=== PATIENT | male | born 1990 | race Caucasian/White ===

== ENCOUNTER 2019-02-06 09:48 | Day surgery (SDC) | payer OTHER ==
[~2019-02-06 09:48] MED LIST: Buffered Lidocaine 1% SYRIN* 1 ML/SYRINGE INTRADERM ONE; Dexamethasone IV* 4 MG/ML 1 ML (4 MG) IV SLOW PU ONE; DiMENhydriNATE IV* 50 MG/ML VIAL IV PUSH PRN; Famotidine IV* 10 MG/ML 2 ML (20 mg) IV ONE; HYDROcodone/ACETAMIN 5-325 MG* 1 TAB PO PRN; Lactated Ringers 1000 ML Bag* 1,000 ML IV SCH; Naloxone* 0.4 MG/ML 1 ML VIAL IV PRN; fentaNYL* 50 MCG/ML 2 ML VIAL (100 MCG VIAL) IV PRN; oxyCODONE/Acetamin 5/325 MG* TAB PO PRN
[2019-02-06] MEDS ORDERED: Bupivacaine 0.25% SDV* 30 ML ONE (09:52)
[2019-02-06] MEDS ORDERED: ceFAZolin 2 GM in NS PREMIX(*) 2 GM/100 ML BAG IVPB ONE (09:57)
[2019-02-06] MEDS ORDERED: Dexamethasone IV* 4 MG/ML 1 ML (4 MG) ONE (09:57)
[2019-02-06] MEDS ORDERED: Famotidine IV* 10 MG/ML 2 ML (20 mg) ONE (09:57)
[2019-02-06] MEDS ORDERED: Propofol* 10 MG/ML 20 ML BTL ONE (10:13)
[2019-02-06] MEDS ORDERED: Midazolam* 1 MG/ML 5 ML VIAL (5 MG) ONE (10:13)
[2019-02-06] MEDS ORDERED: Lidocaine 2% PF * 5 ML VIAL ONE (10:13)
[2019-02-06] MEDS ORDERED: fentaNYL* 50 MCG/ML 2 ML VIAL (100 MCG VIAL) ONE ×2 (10:13→12:18)
[2019-02-06] MEDS ORDERED: Ketorolac INJ* 30 MG/ML 1 ML VIAL ONE (10:29)
[2019-02-06] MEDS ORDERED: Bupivacaine 0.25% EPI 200,000* 30 ML SDV ONE (11:33)
[2019-02-06] MEDS ORDERED: Ondansetron INJ* 2 MG/ML VIAL ONE (12:00)
[2019-02-06 14:11] VITALS: BP 126/76
--- NOTE | 2019-02-06 15:44 | OP ---
DATE OF OPERATION: 02/06/19 - [facility] DATE OF : 89 SURGEON: Edwin Matos MD. DIRECTOR OF RESTAURANT: MAYRA Flores. ANESTHESIOLOGIST: Dr. Damon. ANESTHESIA: General. 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 OPERATIVE PROCEDURES: 1. Left wrist scaphoid nonunion repair with iliac crest cortical cancellous bone graft. 2. Left wrist radial styloidectomy. INDICATIONS: Jerzy is 29. He has an early stage SNAC wrist. He has a lot of lunate extension on the x-rays. It is causing him pain. I got a CT scan to evaluate the extent of deformity. We talked about treatment options. I told him about different bone grafting options and that I would likely end up selecting a piece of iliac crest bone graft. He understands this. He understands there is a chance that he could have pain related to harvesting of the bone graft. He wants to proceed. ESTIMATED BLOOD LOSS: 20 mL. COMPLICATIONS: None. FINDINGS: See above and below. DESCRIPTION OF PROCEDURE: Jerzy was seen in the preoperative holding area. The correct site, side, and procedures were identified. We came back to the operating room, where the arm was prepped and draped in the usual fashion and a time-out was performed. The arm was exsanguinated with the Esmarch and the tourniquet was inflated to 225 mmHg. I made an oblique incision in line with the scaphoid. This was brought back proximally along the course of the FCR tendon. Tendon dissection was carried down. The FCR tendon sheath was released. The tendon was retracted ulnarly. The subsheath was released. I then incised the capsule of the scaphotrapezial joint. The soft tissue was dissected down in line with the scaphoid. The radioscaphocapitate ligament was incised. This exposed the anterior aspect of the scaphoid. The nonunion site was visualized. It took quite some time, but I was able to fully debride it with a combination of the [place] blade, the rongeur, and the curets. Once I had all the fibrous tissue excised, I hyperextended the wrist to correct the deformity. Once I had a good size of the amount of bone loss, I went ahead and turned my attention to harvesting the graft. I made a 4 to 5 cm incision over the junction of the anterior and middle one- thirds of the iliac crest. Dissection was carried down to the fascia. The fascia was incised over the iliac crest. Baby Hohmann retractors were placed. The soft tissue was released around the crest. I then harvested a piece of bicortical cortical cancellous iliac crest bone graft. This was a 1 cm block. This was done using the sagittal saw as well as the curved osteotomes. The inner table was left intact. Once I had harvested a nice piece of cortical cancellous graft, I harvested some additional cancellous graft. I then irrigated out the wound and packed the wound in case I needed to come back to get more bone graft later. I then packed some of the cancellous graft around the cancellous edges of my nonunion. I then went ahead and contoured my cortical cancellous graft to the appropriate size and then tapped into place, getting an extremely tight and excellent fit. The anterior portion was held out to length nicely by the cortical strut. At this point, things were very stable. I went ahead and removed a portion of the trapezium, the anterior lip. I then placed a guidewire for the mini Mitek screw in the standard location. It was maybe just a smidge posterior from the perfect center on the lateral view, but certainly very close and not enough that I wanted to risk losing any fixation. I then measured and selected the 24 mm mini Acutrak screw. I drilled and then placed the screw in standard fashion. I got excellent compression and excellent stability. Fluoroscopic imaging confirmed good location of the screw. The wound was then irrigated out. The radioscaphocapitate ligament was repaired with 3-0 Ethibond suture. The anterior capsule and soft tissue were closed over the scaphoid to the extent possible. The skin was then closed with 3-0 nylon suture. The iliac crest wound was irrigated out. Bone wax was placed over all the cancellous bone. The fascia was closed with 0 Vicryl suture. The subcutaneous tissue was reapproximated with 2-0 Vicryl suture. The skin was closed with 3-0 Monocryl suture and Steri-Strips. Lastly, I pronated the wrist. I then made a 3 cm incision just dorsal to the radial styloid. The radial nerve was retracted out of the way. I incised the soft tissue over the radial styloid. Once I had released just enough to get a good styloidectomy anteriorly and posteriorly, I used a sagittal saw with a [place] elevator protecting the scaphoid to perform the radial styloidectomy. Fluoroscopic imaging revealed a nice radial styloidectomy. I was very happy with the amount of bone that was resected. I put some bone wax over the cancellous bone. Wound was irrigated out. Skin was closed with 3-0 Monocryl suture and Steri-Strips. Marcaine 0.25% was infiltrated all about the hand and wrist. Marcaine 0.25% with epinephrine was infiltrated about the hip. The hip wound was dressed with 4x4s and Tegaderm. The wrist was dressed with Xeroform, 4x4s, sterile Webril, and then a thumb spica splint with the IP joint free was applied. Tourniquet was deflated and he was taken to the recovery room in stable condition. [id number]/[facility] #: [id number] DARREN
== END 2019-02-06 14:43 | disposition home or self-care (01) ==
LOC: OREAST 09:48
PROVIDERS: ATTEND Orthopaedic Surgery Hand Surgery
DX: S62.002K Unspecified fracture of navicular [scaphoid] bone of left wrist, subsequent encounter for fracture with nonunion (principal); F17.200 Nicotine dependence, unspecified, uncomplicated; F19.21 Other psychoactive substance dependence, in remission; X58.XXXD Exposure to other specified factors, subsequent encounter; Y92.9 Unspecified place or not applicable
CPT/HCPCS: 76000; C1713; C1776; J0690; J1100; J1885; J2250; J2405; J2704; J3010; J3490